=== PATIENT | male | born 1950 | race Hispanic/Latino ===

== ENCOUNTER → 2017-11-20 | Outpatient (CLI) | payer OTHER | END | disposition home or self-care (01) | LOC: RAH 13:20 | PROVIDERS: ATTEND Family Medicine | DX: N20.0 Calculus of kidney (principal); K57.30 Diverticulosis of large intestine without perforation or abscess without bleeding | CPT/HCPCS: 74176 ==

== ENCOUNTER → 2022-09-05 | Outpatient (CLI) | payer OTHER | END | disposition home or self-care (01) | LOC: RAH 07:28 | PROVIDERS: ATTEND Family Medicine | DX: M47.816 Spondylosis without myelopathy or radiculopathy, lumbar region (principal); M48.061 Spinal stenosis, lumbar region without neurogenic claudication; M51.37 Other intervertebral disc degeneration, lumbosacral region | CPT/HCPCS: 72148 ==

== ENCOUNTER → 2023-12-29 | Outpatient (CLI) | payer OTHER | END | disposition home or self-care (01) | LOC: RAH 07:12 | PROVIDERS: ATTEND Family Medicine | DX: K76.0 Fatty (change of) liver, not elsewhere classified (principal); N40.0 Benign prostatic hyperplasia without lower urinary tract symptoms; R31.9 Hematuria, unspecified | CPT/HCPCS: 76700; 76856 ==

== ENCOUNTER → 2024-12-27 | Outpatient (CLI) | payer OTHER ==
--- NOTE | 2024-12-28 12:11 | HMCIMG ---
EXAM: CT Pelvis without IV contrast CLINICAL HISTORY: LLQ pain TECHNIQUE: Axial computed tomography images of the pelvis without intravenous contrast. CONTRAST: None. COMPARISON: November 20, 2017. FINDINGS: URINARY BLADDER: Unremarkable. BOWEL: there is interval herniation of a short segment of descending colon into the previously seen fat containing left inguinal hernia now measuring 6.4 x 6 x 4.6 cm. There are multiple distal colonic diverticuli without acute diverticulitis. Unremarkable appearance of the small bowel. No evidence of bowel obstruction. No evidence suggesting enteritis or colitis. APPENDIX: Unremarkable. PERITONEUM: No free fluid, loculated fluid collection or free air. LYMPH NODES: No lymphadenopathy is evident. REPRODUCTIVE: Stable prostatomegaly indenting the bladder base. VASCULATURE: The visualised distal infrarenal aorta and its branches demonstrate atheromatous calcifications without aneurysm. BONES: No aggressive appearing osseous lesion. No acute osseous pathology evident. Degenerative changes are again noted at L5/S1. IMPRESSION: Interval herniation of a short segment of proximal sigmoid colon into the previously seen fat containing left inguinal hernia. No bowel obstruction or inflammation. Colonic diverticulosis without acute diverticulitis. Normal appendix. Stable prostatomegaly as seen previously. /[place]
== END | disposition home or self-care (01) ==
LOC: RAH 13:29
PROVIDERS: ATTEND Surgery
DX: K57.30 Diverticulosis of large intestine without perforation or abscess without bleeding (principal); K40.90 Unilateral inguinal hernia, without obstruction or gangrene, not specified as recurrent; N40.0 Benign prostatic hyperplasia without lower urinary tract symptoms; I70.0 Atherosclerosis of aorta; M47.817 Spondylosis without myelopathy or radiculopathy, lumbosacral region; R10.32 Left lower quadrant pain
CPT/HCPCS: 72192